=== PATIENT | female | born 1960 | race Two or more races ===

== ENCOUNTER 2018-05-28 16:43 | Emergency (ER) | payer SELFPAY ==
[~2018-05-28] VITALS: Ht 152.4 cm; Wt 86.2 kg
[2018-05-28 18:49] VITALS: BP 145/81
== END 2018-05-28 19:59 | disposition home or self-care (01) ==
LOC: ER 16:51
DX: R51 Headache (principal); M54.2 Cervicalgia; M54.9 Dorsalgia, unspecified; V43.52XA Car driver injured in collision with other type car in traffic accident, initial encounter; Y93.89 Activity, other specified; Y99.8 Other external cause status; Y92.410 Unspecified street and highway as the place of occurrence of the external cause
CPT/HCPCS: 70450; 71101; 72040

== ENCOUNTER 2020-01-01 13:56 | Emergency (ER) | payer MEDICAID ==
[~2020-01-01] VITALS: Ht 152.4 cm; Wt 86.2 kg
[2020-01-01 15:31] VITALS: BP 154/87
== END 2020-01-01 16:01 | disposition home or self-care (01) ==
LOC: ER 13:56
DX: S92.531A Displaced fracture of distal phalanx of right lesser toe(s), initial encounter for closed fracture (principal); W18.09XA Striking against other object with subsequent fall, initial encounter; Y93.89 Activity, other specified; Y92.832 Beach as the place of occurrence of the external cause; Y99.8 Other external cause status
CPT/HCPCS: 73660